=== PATIENT | male | born 1950 | race Caucasian/White ===

== ENCOUNTER → 2017-01-12 | Outpatient (CLI) | payer OTHER ==
[~2017-01-12] MED LIST: GADOBUTROL 10 ML VIAL IVP ONE
== END ==
LOC: FIMAGING 14:54
PROVIDERS: ATTEND Internal Medicine Hematology & Oncology
DX: C71.9 Malignant neoplasm of brain, unspecified (principal)
CPT/HCPCS: A9585

== ENCOUNTER 2017-06-06 15:30 | Inpatient (IN) | payer OTHER ==
[2017-06-06] MEDS ORDERED: NS 1,000 ML IV ONE (15:54)
--- NOTE | 2017-06-06 15:54 | EDPHY ---
H & P Stated Complaint: rlq abd pain since yesterday Time Seen by Provider: 06/06/17 15:53 HPI/ROS: CHIEF COMPLAINT: Right lower quadrant pain, low-grade fever HISTORY OF PRESENT ILLNESS: The patient has a history of a [employer] GBM. He is currently receiving treatment with chemotherapy. He was referred to the ED by his primary care provider for evaluation of a 1 day history of right lower quadrant pain and low-grade fever. The patient denies prior history of the symptoms. He states his symptoms are mild in nature. They are worsened with palpation and movement. The patient denies prior history of appendectomy. The patient denies dysuria or flank pain. REVIEW OF SYSTEMS: A comprehensive 10 point review of systems is otherwise negative aside from elements mentioned in the history of present illness. Source: Patient Exam Limitations: No limitations - Personal History Current Tetanus/Diphtheria Vaccine: Yes - Medical/Surgical History Hx Asthma: No Hx Chronic Respiratory Disease: No Hx Diabetes: No Hx Cardiac Disease: No Hx Renal Disease: No Hx Cirrhosis: No Hx Alcoholism: No Hx HIV/AIDS: No Hx Splenectomy or Spleen Trauma: No Other PMH: HTN, anxiety, neuropathy glioblastoma - Social History Smoking Status: Never smoked - Physical Exam Exam: General Appearance: Alert, no acute distress Eyes: Pupils equal and round no pallor or injection ENT, Mouth: Mucous membranes moist Respiratory: There are no retractions, lungs are clear to auscultation Cardiovascular: Regular rate and rhythm Gastrointestinal: Mild tenderness to palpation right lower quadrant Neurological: Mild expressive aphasia presumably secondary to his [employer] tumor Skin: Warm and dry, no rashes Musculoskeletal: Neck is supple nontender Extremities: symmetrical, full range of motion Constitutional: Initial Vital Signs Temperature (C) 36.9 C 06/06/17 15:35 Heart Rate 116 H 06/06/17 15:35 Respiratory Rate 20 06/06/17 15:35 Blood Pressure 122/90 H 06/06/17 15:35 O2 Sat (%) 97 06/06/17 15:35 O2 Delivery Mode Room Air Allergies/Adverse Reactions: No Known Allergies Allergy (Verified 06/06/17 15:32) Home Medications: Medication Instructions Recorded ALPRAZolam [Xanax 0.25 MG (*)] 0.5 mg PO Q6H PRN #60 tab 07/28/16 Gabapentin [Neurontin 300 MG (*)] 300 mg PO TID #90 cap 07/28/16 Propranolol HCl [Inderal 10mg (*)] 10 mg PO TID #90 tab 07/28/16 busPIRone [Buspar (*)] 10 mg PO TID #90 tab 07/28/16 levETIRAcetam [Keppra 250 mg (*)] 750 mg PO BID #180 tab 07/28/16 oxyCODONE/APAP 5/325 [Percocet 1 - 2 tab PO Q4HRS PRN #60 tab 07/28/16 5/325 (*)] traZODone [traZODONE 50MG (*)] 50 mg PO HS #30 tab 07/28/16 Sulfamethox/Tmp 06/06/17 Temozolomide 06/06/17 Medical Decision Making ED Course/Re-evaluation: The patient presents to the ED for evaluation a 1 day history of abdominal pain. The patient characterized this pain is being quite mild. He did have associated fevers. The patient does have a history of GBM and is currently receiving chemotherapy. The patient was seen by his primary care provider who referred him to the ED. The patient was noted to have fairly tense abdominal musculature and was a bit difficult to examine. He did have tenderness to deep palpation in his right mid quadrant. A CT scan of the abdomen pelvis was obtained which demonstrates acute appendicitis. Consultation was made with Dr. Martinez, our on-call surgeon, at 5:20 p.m.. The patient did receive 1 g of IV Invanz. The patient will be admitted to the hospital for operative management of his acute appendicitis. Differential Diagnosis: Differential diagnosis considered includes appendicitis, perforation, obstruction, diverticulitis, nephrolithiasis - Data Points Laboratory Results: Laboratory Results 06/06/17 16:14 06/06/17 16:14 06/06/17 06/06/17 06/06/17 16:14 16:14 15:57 WBC 9.38 10^3/uL 10^3/uL (3.80-9.50) RBC 4.13 10^6/uL L 10^6/uL (4.40-6.38) Hgb 14.4 g/dL g/dL (13.7-17.5) Hct 39.2 % L % (40.0-51.0) MCV 94.9 fL fL (81.5-99.8) MCH 34.9 pg H pg (27.9-34.1) MCHC 36.7 g/dL g/dL (32.4-36.7) RDW 12.3 % % (11.5-15.2) Plt Count 131 10^3/uL L 10^3/uL (150-400) MPV 9.4 fL fL (8.7-11.7) Neut % (Auto) 80.2 % H % (39.3-74.2) Lymph % (Auto) 6.3 % L % (15.0-45.0) [place] % (Auto) 12.8 % % (4.5-13.0) Eos % (Auto) 0.0 % L % (0.6-7.6) Baso % (Auto) 0.2 % L % (0.3-1.7) Nucleat RBC Rel Count 0.0 % % (0.0-0.2) Absolute Neuts (auto) 7.52 10^3/uL H 10^3/uL (1.70-6.50) Absolute Lymphs (auto) 0.59 10^3/uL L 10^3/uL (1.00-3.00) Absolute Monos (auto) 1.20 10^3/uL H 10^3/uL (0.30-0.80) Absolute Eos (auto) 0.00 10^3/uL L 10^3/uL (0.03-0.40) Absolute Basos (auto) 0.02 10^3/uL 10^3/uL (0.02-0.10) Absolute Nucleated RBC 0.00 10^3/uL 10^3/uL (0-0.01) Immature Gran % 0.5 % % (0.0-1.1) Immature Gran # 0.05 10^3/uL 10^3/uL (0.00-0.10) Sodium 141 mEq/L mEq/L (135-145) Potassium 4.1 mEq/L mEq/L (3.5-5.2) Chloride 108 mEq/L mEq/L (97-110) Carbon Dioxide 16 mEq/l L mEq/l (22-31) Anion Gap 17 mEq/L H mEq/L (8-16) BUN 14 mg/dL mg/dL (7-23) Creatinine 0.9 mg/dL mg/dL (0.7-1.3) Estimated GFR > 60 Glucose 113 mg/dL H mg/dL (70-100) Calcium 9.7 mg/dL mg/dL (8.5-10.4) Urine Color KIRAN Urine Appearance HAZY Urine pH 5.0 (5.0-7.5) Ur Specific [place] 1.029 (1.002-1.030) Urine Protein 2+ H (NEGATIVE) Urine Ketones 1+ H (NEGATIVE) Urine Blood 1+ H (NEGATIVE) Urine Nitrate NEGATIVE (NEGATIVE) Urine Bilirubin NEGATIVE (NEGATIVE) Urine Urobilinogen NEGATIVE EU EU (0.2-1.0) Ur Leukocyte Esterase NEGATIVE (NEGATIVE) Urine RBC 3-5 /hpf H /hpf (0-3) Urine WBC 1-3 /hpf /hpf (0-3) Ur Epithelial Cells NONE SEEN /lpf /lpf (NONE-1+) Urine Mucus 4+ /lpf H /lpf (NONE-1+) Urine Glucose NEGATIVE (NEGATIVE) Medications Given: Discontinued Medications Sodium Chloride (Ns) 1,000 mls @ 0 mls/hr IV EDNOW ONE; Wide Open PRN Reason: Protocol Stop: 06/06/17 15:55 Last Admin: 06/06/17 16:14 Dose: 1,000 mls Departure - Departure Disposition: [facility] Inpatient Acute Clinical Impression: Acute appendicitis Qualifiers: Acute appendicitis type: with localized peritonitis Qualified Code(s): K35.3 - Acute appendicitis with localized peritonitis Condition: Good Referrals: Navin Lao MD [Primary Care Provider] - As per Instructions
[2017-06-06 16:27] LABS: PLATELET COUNT 131 10^3/uL (150-400)
[2017-06-06] MEDS ORDERED: IOPAMIDOL (ISOVUE-300) 100 ML BTL ONE (16:56)
[2017-06-06] MEDS ORDERED: ERTAPENEM 1 GM VIAL IVP ONE (17:16)
[2017-06-06] MEDS ORDERED: ceFAZolin 1 GM VIAL ONE (18:24)
[2017-06-06] MEDS ORDERED: HEPARIN 1000 UNIT/1 ML MDV ONE (18:24)
[2017-06-06] MEDS ORDERED: BUPIVACAINE 0.5% 10 ML SDV ONE ×2 (18:24→18:25)
--- NOTE | 2017-06-06 18:34 | PDANEPAE ---
ANE History of Present Illness lap appy ANE Past Medical History - Cardiovascular History Hx Hypertension: Yes Hx Arrhythmias: No Hx Chest Pain: No Hx Coronary Artery / Peripheral Vascular Disease: No Hx CHF / Valvular Disease: No Hx Palpitations: No - Pulmonary History Hx COPD: No Hx Asthma/Reactive Airway Disease: No Hx Recent Upper Respiratory Infection: No Hx Oxygen in Use at Home: No Hx Sleep Apnea: No Pulmonary History Comment: guille triggers no dx - Neurologic History Hx Cerebrovascular Accident: No Hx Seizures: Yes Hx Dementia: No Neurologic History Comment: seizure 07/02/16 AMS. brain tumor on left. right sided weakness - Endocrine History Hx Diabetes: No Hypothyroid: No Hyperthyroid: No Obesity: no - Renal History Hx Renal Disorders: No - Liver History Hx Hepatic Disorders: No - Neurological & Psychiatric Hx Hx Neurological and Psychiatric Disorders: Yes Neurological / Psychiatric History Comment: anxiety. 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 hard of hearing- no aides - Chronic Pain History Chronic Pain: Yes (headaches) - Surgical History Prior Surgeries: 07/05/16 left frontal crani aborted d/t pt pulling out pins during surgery ANE Review of Systems Review of systems is: negative Review of Systems: - Exercise capacity Exercise capacity: >=4 METS ANE Patient History - Allergies Allergies/Adverse Reactions: No Known Allergies Allergy (Verified 06/06/17 15:32) - Home Medications Home medications: home medication list seen and reviewed Home Medications: Acyclovir [Zovirax 400 mg (*)] 400 mg PO AD 06/06/17 [Last Taken Unknown] Prochlorperazine Maleate [Compazine 10mg (*)] 10 mg PO Q6H PRN 06/06/17 [Last Taken Unknown] Sulfamethox/Tmp 800/160 mg [Bactrim Ds] 1 tab PO AD 06/06/17 [Last Taken Unknown ] Temozolomide [Temodar] 140 mg PO AD 06/06/17 [Last Taken Unknown] traZODone [traZODONE 100MG (*)] 100 mg PO HS 06/06/17 [Last Taken 06/05/17] - NPO status NPO Since - Liquids (Date): 06/06/17 NPO Since - Liquids (Time): 09:00 NPO Since - Solids (Date): 06/05/17 - Anes Hx Anes Hx: no prior problems - Smoking Hx Smoking Status: Never smoked - Family Anes Hx Family Hx Anesthesia Complications: none ANE Labs/Vital Signs - Labs Result Diagrams: 06/06/17 16:14 06/06/17 16:14 - Vital Signs Blood Pressure: 132/83 Heart Rate: 96 Respiratory Rate: 16 O2 Sat (%): 96 Height: 187.96 cm Weight: 77.111 kg ANE Physical Exam - Airway Neck exam: FROM Mallampati Score: Class 1 Mouth exam: normal dental/mouth exam - Pulmonary Pulmonary: no respiratory distress - Cardiovascular Cardiovascular: regular rate and rhythym - ASA Status ASA Status: III ANE Anesthesia Plan Anesthesia Plan: general endotracheal anesthesia Specialized Airway: video laryngoscope
[2017-06-06] MEDS ORDERED: fentaNYL 250 MCG/5 ML INJ ONE (18:39)
[2017-06-06] MEDS ORDERED: PROPOFOL 200 MG/20 ML VIAL ONE ×2 (18:39)
[2017-06-06] MEDS ORDERED: LIDOCAINE 2% 5 ML SDV ONE (18:41)
[2017-06-06] MEDS ORDERED: ROCURONIUM 100 MG/10 ML VIAL ONE (18:42)
[2017-06-06] MEDS ORDERED: MIDAZOLAM 2 MG/2 ML VIAL ONE (18:44)
[2017-06-06] MEDS ORDERED: PHENYLEPHRINE HCL 100 MCG/ML SYR ONE (19:18)
[2017-06-06] MEDS ORDERED: ALBUTEROL 3 ML DEYVIAL IH PRN (19:31)
[2017-06-06] MEDS ORDERED: ONDANSETRON 4 MG/2 ML VIAL IVP PRN ×2 (19:31→21:09)
[2017-06-06] MEDS ORDERED: OXYCODONE/APAP 5/325 TAB PO PRN (19:31)
[2017-06-06] MEDS ORDERED: ACETAMINOPHEN 500 MG TAB PO PRN (19:31)
[2017-06-06] MEDS ORDERED: fentaNYL 100 MCG/2 ML INJ IVP PRN (19:31)
[2017-06-06] MEDS ORDERED: HYDROmorphONE/DILAUDID 2 MG/ML INJ IVP PRN ×2 (19:31→21:09)
[2017-06-06] MEDS ORDERED: DEXAMETHASONE 4 MG/ML VIAL IVP PRN (19:31)
[2017-06-06] MEDS ORDERED: LR 500 ML IV PRN (19:31)
[2017-06-06] MEDS ORDERED: NALOXONE HCL 0.4 MG/ML INJ IVP PRN (19:31)
--- NOTE | 2017-06-06 19:31 | POSTANESTH ---
Post Anesthetic Evaluation Cardiovascular Status: Normal, Stable Respiratory Status: Normal, Stable Level of Consciousness/Mental Status: Can Participate in Eval Pain Control: Adequate, Prn Tx Ordered Nausea/Vomiting Control: Adequate, Prn Tx Ordered Complications Possibly Related to Anesthesia: None Noted
[2017-06-06] MEDS ORDERED: KETOROLAC 30 MG/1 ML SDV ONE (20:04)
[2017-06-06] MEDS ORDERED: ONDANSETRON 4 MG/2 ML VIAL ONE (20:04)
[2017-06-06] MEDS ORDERED: DEXAMETHASONE 4 MG/ML VIAL ONE (20:04)
[2017-06-06] MEDS ORDERED: SUGAMMADEX SODIUM 200 MG/2 ML VIAL IVP ONE (20:04)
[2017-06-06] MEDS ORDERED: fentaNYL 100 MCG/2 ML INJ ONE (21:14)
--- NOTE | 2017-06-06 21:16 | PDGENHP ---
History & Physical Chief Complaint: Right lower quadrant pain History of Present Illness: 66-year-old male with right lower quadrant pain for [address] scan shows a significant appendicitis. He is afebrile. Present illness is complicated by the fact that he is undergoing chemotherapy for a glioblastoma of the brain. He is admitted at this time for laparoscopic appendectomy. Risks and options been fully discussed Pertinent Past, Social, Family History: Past medical history includes a glioblastoma. Medications include Keppra, gabapentin and others listed in his chart. Allergies none. Family history noncontributory. Review of systems negative on a 10 point review except for the HPI. Specifically does not smoke Relevant Physical Exam: General alert cooperative 66-year-old male with an obvious expressive a aphasia. Chest clear. Cor regular rhythm. Abdomen soft tender in the right lower quadrant with some guarding. Genitalia normal. HEENT nonicteric without adenopathy. Neuro expressive aphasia, moves all extremities but weaker on the right side. Psych oriented alert and cooperative Cardiorespiratory Assessment: Acute appendicitis. Plan lap appy. Risks and options been fully discussed
--- NOTE | 2017-06-06 21:19 | POSTOPPROG ---
Post Op Note Date of Operation: 06/06/17 Surgeon: Zain Martinez Anesthesiologist: Belkis Anesthesia: GET(General Endotracheal) Pre-op Diagnosis: Acute appendicitis Post-op Diagnosis: Perforated acute appendicitis Indication: Pain Procedure: Lap appy and drainage of perforated appendix Findings: Retrocecal retroperitoneal perforated appendix Inf/Abcess present in the surg proc area at time of surgery?: Yes Depth: Organ Space EBL: Minimal Complications: None Drains: Vernon Omer Specimen(s): Appendix
[2017-06-06] MEDS: D5W 1/2 NS W/ 20 KCl/L 1,000 ML IV SCH (22:03)
[2017-06-07] MEDS: KETOROLAC 15 MG/1 ML SDV IVP SCH ×5 (00:41→23:35)
[2017-06-07] MEDS: OXYCODONE/APAP 5/325 TAB PO PRN ×2 (06:26→10:34)
[2017-06-07] MEDS: D5W 1/2 NS W/ 20 KCl/L 1,000 ML IV SCH ×3 (06:26→23:35)
--- NOTE | 2017-06-07 08:23 | SOAPPROG ---
SOAP Progress Note Assessment/Plan: Assessment: looks good sp perfed appe/ wound ok/ afebrile/ tolerating clears abd soft with bs minimal juan drainage Plan:advance diet 06/07/17 08:22 Objective: Vital Signs Temp Pulse Resp BP Pulse Ox 36.6 C 72 18 97/59 L 97 06/07/17 07:54 06/07/17 07:54 06/07/17 07:54 06/07/17 07:54 06/07/17 07:54 06/06/17 06/07/17 06/08/17 05:59 05:59 05:59 Intake Total 2049 Output Total 320 Balance 1730 ICD10 Worksheet Patient Problems: Problems Problem Status Onset Acute appendicitis Acute Altered mental status Acute Brain tumor Acute Seizure Acute
[2017-06-07] MEDS: ERTAPENEM 1 GM VIAL IV SCH (08:39)
--- NOTE | 2017-06-07 10:10 | PDMN ---
Medical Necessity Medical necessity: Patient meets inpatient criteria per physician note and [facility] [place] [facility] -[facility] Appendectomy, with Abscess or Peritonitis, by Laparoscopy - 2 days postop - ( anticipated LOS > 2 midnights for ongoing IV antibiotics after perforated acute appendicitis.)
[2017-06-07] MEDS ORDERED: ALPRAZolam 0.25 MG TAB PO PRN (11:20)
[2017-06-07] MEDS ORDERED: PROCHLORPERAZINE MALEATE 10 MG TAB PO PRN (11:20)
[2017-06-07] MEDS ORDERED: ACYCLOVIR 400 MG TAB PO SCH (11:30)
[2017-06-07] MEDS ORDERED: SULFAMETHOX/TMP 800/160 MG 1 TAB PO SCH (11:30)
[2017-06-07] MEDS ORDERED: TEMOZOLOMIDE 140 MG PO SCH (11:30)
--- NOTE | 2017-06-07 12:25 | ASMTCMCOM ---
CM Note CM Note Notes: 06/07/2017 Case Management Note Reviewed chart. Pt admitted for appendectomy. There are no PT or OT evals at this time. There are no case management d/c needs identified d/t pt age, marital status and independence with ADL's. Case Management d/c poc: anticipating independent with follow up as directed. Case Management available if needs change. Date Signed: 06/07/2017 12:24 PM Electronically Signed By:Kayce Cabrera RN
[2017-06-07] MEDS ORDERED: levETIRAcetam 250 MG TAB PO SCH ×2 (12:27→21:00)
[2017-06-07] MEDS: levETIRAcetam 250 MG TAB PO SCH ×2 (13:33→21:19)
[2017-06-07] MEDS ORDERED: NS 1,000 ML IV ONE (14:47)
[2017-06-07] MEDS: GABAPENTIN 300 MG CAP PO SCH ×2 (17:09→21:19)
[2017-06-07] MEDS: PROPRANOLOL HCL 10 MG TAB PO SCH ×2 (17:09→21:18)
[2017-06-07] MEDS: busPIRone 10 MG TAB PO SCH ×2 (17:11→21:19)
[2017-06-07] MEDS ORDERED: CALCIUM CARBONATE 500 MG CHEWABLE TAB PO PRN (18:12)
[2017-06-07 20:11] VITALS: RESP 16
[2017-06-07] MEDS ORDERED: traZODone 100 MG TAB PO SCH (21:00)
[2017-06-08] MEDS: KETOROLAC 15 MG/1 ML SDV IVP SCH ×2 (05:33→11:41)
[2017-06-08] MEDS: OXYCODONE/APAP 5/325 TAB PO PRN (08:28)
[2017-06-08] MEDS: busPIRone 10 MG TAB PO SCH (08:29)
[2017-06-08] MEDS: levETIRAcetam 250 MG TAB PO SCH (08:29)
[2017-06-08] MEDS: PROPRANOLOL HCL 10 MG TAB PO SCH (08:30)
[2017-06-08] MEDS: GABAPENTIN 300 MG CAP PO SCH (08:32)
[2017-06-08 08:36] VITALS: BP 110/61
[2017-06-08 08:39] VITALS: PULSE 82; TEMP 97.9; O2SAT 92
[2017-06-08] MEDS: ERTAPENEM 1 GM VIAL IV SCH (09:34)
--- NOTE | 2017-06-08 09:56 | SOAPPROG ---
SOAP Progress Note Assessment/Plan: Assessment: 66 y/o male s/p appendectomy S: Doing well. Eager to go home. O: Afebrile Alert No WOB Abdomen soft, nontender, +BS Minimal CYNTHIA drainage Plan: Discharge today. Rx for Levaquin for 5 days. Follow up in office next week to get drain out. 06/08/17 09:54 Objective: Vital Signs Temp Pulse Resp BP Pulse Ox 36.6 C 82 16 110/61 92 06/08/17 08:37 06/08/17 08:37 06/08/17 08:37 06/08/17 08:37 06/08/17 08:37 06/07/17 06/08/17 06/09/17 05:59 05:59 05:59 Intake Total 2050 3450 Output Total 320 425 Balance 1730 3025 ICD10 Worksheet Patient Problems: Problems Problem Status Onset Acute appendicitis Acute Altered mental status Acute Brain tumor Acute Seizure Acute
--- NOTE | 2017-06-08 13:12 | GOP ---
[f rep st] OPERATIVE REPORT DATE OF OPERATION: 04/05/2017 SURGEON: Zain Martinez MD ELECTRO[employer] T[employer]NER AND FINISHER: There was no cancer genetics assistant. ANESTHESIOLOGIST: Anesthesia was Dr. Stephens. PREOPERATIVE DIAGNOSIS: Acute appendicitis. POSTOPERATIVE DIAGNOSIS: Perforated appendicitis. PROCEDURE PERFORMED: Laparoscopic appendectomy and drainage. FINDINGS: The patient was found to have a very inflamed retrocecal retroperitoneal appendix which wa s quite difficult to get out, had a small contained abscess associated with the appendix. DESCRIPTION OF PROCEDURE: Patient was taken to the operating room where he received a satisfactory g eneral endotracheal anesthesia. He was placed in the supine position, prepped and draped in the usua l sterile fashion. A periumbilical incision was made. A Veress needle was inserted. Pneumoperitone um was established. Trocar was introduced. Laparoscope introduced. Good visualization was obtained . Two other trocars were placed in the lower abdomen under direct vision. The cecum was rotated med ially. The appendix was visualized but there was a marked amount of inflammation and induration in t he area. The appendix was carefully mobilized using the Harmonic scalpel and elevated up out of the retroperitoneal position. The base of the appendix was identified. It was skeletonized and divided w ith the Endo-MAIDA stapler. The appendiceal mesentery was then carefully divided with the Harmonic sca lpel, it from the wall of the cecum very carefully. A small abscess pocket was entered an d suctioned clear. The appendix was freed up from its chronically inflamed retroperitoneal position. It basically came out in portions, one below and one above the abscessed area. After freeing the w hole thing, it was placed in a specimen bag and extracted through the upper midline port site. The w ound was copiously irrigated. Hemostasis was assured. There was no evidence of any retained appendi ceal tissue. A 15 round silicone CYNTHIA drain was brought through one of the lower trocar sites and plac ed in the pelvis and into the appendiceal abscess are. Trocars were removed under direct vision. Tr ocar sites were closed with 0 Vicryl for the fascia, 4-0 Monocryl subcuticular stitch for the skin. All layers were infiltrated with 0.5% Marcaine. Blood loss was negligible. There were no complicatio ns. He was taken to the recovery room in good condition. /[id number]/MODL
== END 2017-06-08 12:09 | disposition home or self-care (01) | DRG 339 ==
LOC: F3E 21:51
PROVIDERS: ADMIT Surgery; ATTEND Surgery
PROC: 0W9G0ZZ Drainage of Peritoneal Cavity, Open Approach (ICD-10-PCS; principal; 2017-06-06 18:30)
PROC: 0DTJ4ZZ Resection of Appendix, Percutaneous Endoscopic Approach (ICD-10-PCS; principal; 2017-06-06 18:30)
DX: K35.3 Acute appendicitis with localized peritonitis (principal); C71.1 Malignant neoplasm of frontal lobe; R47.01 Aphasia; G81.91 Hemiplegia, unspecified affecting right dominant side; I10 Essential (primary) hypertension; F41.9 Anxiety disorder, unspecified
CPT/HCPCS: 96374; J0690; J1100; J1335; J1885; J2250; J2370; J2405; J2704; J3010; Q9967

== ENCOUNTER 2017-07-09 12:06 | Emergency (ER) | payer OTHER ==
[2017-07-09 12:12] VITALS: BP 101/71; PULSE 85; RESP 20; TEMP 97.3; O2SAT 97
[2017-07-09 12:44] LABS: PLATELET COUNT 79 10^3/uL (150-400)
--- NOTE | 2017-07-09 12:48 | EDPHY ---
H & P Time Seen by Provider: 07/09/17 12:20 HPI/ROS: CHIEF COMPLAINT: Seizure HISTORY OF PRESENT ILLNESS: 66-year-old male presents to the emergency department by private vehicle with his after he had a witnessed seizure. Patient has a known history of a glioblastoma which was resected 1 year ago. He underwent chemo and radiation and continues monthly chemo. He is followed by Dr. Park. He is due for his next cycle of chemo starting tomorrow. He has not had a seizure nearly 1 year. He has been taking Keppra 750 mg daily. He recently went on a trip and states that he was very tired. He slept for 14 hr yesterday was feeling fine and then had a witnessed seizure just 2 hr prior to arrival. The patient fell and hit the left side of his face on a rug that was overlying hardwood floor. He was confused after the incident consistent with being postictal. He did not bite his tongue. He was not incontinent of urine. He denies a headache. Denies visual symptoms. Denies neck pain. REVIEW OF SYSTEMS: Constitutional: No fever, no chills. Eyes: No double or blurry vision. ENT: No sore throat. Respiratory: No cough, no shortness of breath. Cardiac: No chest pain. Gastrointestinal: No abdominal pain, vomiting or diarrhea. Genitourinary: No dysuria. Musculoskeletal: No neck or back pain. Skin: No rashes. Neurological: No headache. Past Medical/Surgical History: Glioblastoma resected July of 2016, still undergoing chemotherapy, appendectomy June 2017, hypertension, anxiety, neuropathy Social History: Smoking Status: Never smoked Physical Exam: General Appearance: Alert, no distress. Patient is having difficulty speaking which is chronic. at bedside. Eyes: Pupils equal and round. Extraocular motions are all intact. ENT: Mouth: Mucous membranes moist. No tongue laceration or abrasion. Respiratory: No wheezing, rhonchi, or rales, lungs are clear to auscultation. Cardiovascular: Regular rate and rhythm. Gastrointestinal: Abdomen is soft and nontender, no masses, no rebound or guarding, bowel sounds normal. Neurological: Alert and oriented x 3, cranial nerves II through XII grossly intact Skin: Superficial abrasions noted to the left zygomatic arch and left cheek area. Superficial abrasion to the anterior helix of the left ear. Warm and dry , no rashes. Musculoskeletal: Nontender to palpate along the cervical, thoracic or lumbar spine. Neck is supple. Extremities: Full range of motion and no peripheral edema. Psychiatric: Patient is oriented X 3, there is no agitation. Constitutional: Initial Vital Signs Temperature (C) 36.3 C 07/09/17 12:10 Heart Rate 85 07/09/17 12:10 Respiratory Rate 20 07/09/17 12:10 Blood Pressure 101/71 07/09/17 12:10 O2 Sat (%) 97 07/09/17 12:10 O2 Delivery Mode Room Air Allergies/Adverse Reactions: No Known Allergies Allergy (Verified 07/09/17 12:09) Home Medications: Medication Instructions Recorded ALPRAZolam [Xanax 0.25 MG (*)] 0.5 mg PO Q6H PRN #60 tab 07/28/16 Gabapentin [Neurontin 300 MG (*)] 300 mg PO TID #90 cap 07/28/16 Propranolol HCl [Inderal 10mg (*)] 10 mg PO TID #90 tab 07/28/16 busPIRone [Buspar (*)] 10 mg PO TID #90 tab 07/28/16 levETIRAcetam [Keppra 250 mg (*)] 750 mg PO BID #180 tab 07/28/16 Acyclovir [Zovirax 400 mg (*)] 400 mg PO AD 06/06/17 Prochlorperazine Maleate 10 mg PO Q6H PRN 06/06/17 [Compazine 10mg (*)] Sulfamethox/Tmp 800/160 mg 1 tab PO AD 06/06/17 [Bactrim DS] Temozolomide [Temodar] 140 mg PO AD 06/06/17 traZODone [traZODONE 100MG (*)] 100 mg PO HS 06/06/17 Dexamethasone [Decadron] 8 mg PO BID #20 tab 07/09/17 Medical Decision Making - Diagnostics Imaging Results: Imaging Impressions Brain MRI 07/09/17 13:35 Impression: Increasing peripheral nodular enhancement in the operative bed left frontal lobe extending into the parietal lobe indicating progression of patient' s known glioblastoma. Increasing surrounding vasogenic edema. Results called and discussed with Marjan Hendrickson PA-C, on 07/09/2017, 15:25. Imaging: Discussed imaging studies w/ call center trainer Radiologist ED Course/Re-evaluation: 66-year-old male presents to the emergency department with history of glioblastoma presents to the emergency department after having seizure. He has and seizure in nearly 1 year. Hemoglobin 12.7, hematocrit 35.2%. Platelets 79,000. The case was discussed with Dr. Julio C Miller, secondary supervising physician, who did not directly evaluate the patient but agrees with treatment and plan. He recommended obtaining MRI both without and with contrast which revealed nodular enhancement of his glioblastoma measuring 5.7 x 2.0 x 2.2 cm. I spoke with Dr. Torres, on-call oncologist, who recommended starting the patient on Decadron 8 mg twice daily. He will continue his Keppra. He will hold off on taking his chemotherapy tomorrow and will follow up in their office this week. The patient and the were comfortable with this. They would like to go home. They do not want to be admitted to the hospital. I recommended returning to the emergency department immediately if he developed recurring seizure activity, if he developed worsening headache, altered mental status, or any other concerns. They both verbalized understanding and agreed. Differential Diagnosis: Seizure including but not limited to electrolyte abnormality, alcohol withdrawal , medication noncompliance, head injury, and breakthrough seizure. - Data Points Laboratory Results: Laboratory Results 07/09/17 12:40 07/09/17 12:40 07/09/17 07/09/17 12:40 12:40 WBC 2.47 10^3/uL L 10^3/uL (3.80-9.50) RBC 3.76 10^6/uL L 10^6/uL (4.40-6.38) Hgb 12.7 g/dL L g/dL (13.7-17.5) Hct 35.2 % L % (40.0-51.0) MCV 93.6 fL fL (81.5-99.8) MCH 33.8 pg pg (27.9-34.1) MCHC 36.1 g/dL g/dL (32.4-36.7) RDW 12.5 % % (11.5-15.2) Plt Count 79 10^3/uL L 10^3/uL (150-400) MPV 9.4 fL fL (8.7-11.7) Neut % (Auto) 61.9 % % (39.3-74.2) Lymph % (Auto) 21.5 % % (15.0-45.0) [place] % (Auto) 15.4 % H % (4.5-13.0) Eos % (Auto) 0.4 % L % (0.6-7.6) Baso % (Auto) 0.4 % % (0.3-1.7) Nucleat RBC Rel Count 0.0 % % (0.0-0.2) Absolute Neuts (auto) 1.53 10^3/uL L 10^3/uL (1.70-6.50) Absolute Lymphs (auto) 0.53 10^3/uL L 10^3/uL (1.00-3.00) Absolute Monos (auto) 0.38 10^3/uL 10^3/uL (0.30-0.80) Absolute Eos (auto) 0.01 10^3/uL L 10^3/uL (0.03-0.40) Absolute Basos (auto) 0.01 10^3/uL L 10^3/uL (0.02-0.10) Absolute Nucleated RBC 0.00 10^3/uL 10^3/uL (0-0.01) Immature Gran % 0.4 % % (0.0-1.1) Immature Gran # 0.01 10^3/uL 10^3/uL (0.00-0.10) Sodium 140 mEq/L mEq/L (135-145) Potassium 3.8 mEq/L mEq/L (3.5-5.2) Chloride 105 mEq/L mEq/L (97-110) Carbon Dioxide 27 mEq/l mEq/l (22-31) Anion Gap 8 mEq/L mEq/L (8-16) BUN 17 mg/dL mg/dL (7-23) Creatinine 0.9 mg/dL mg/dL (0.7-1.3) Estimated GFR > 60 Glucose 92 mg/dL mg/dL (70-100) Calcium 8.6 mg/dL mg/dL (8.5-10.4) Departure - Departure Disposition: Home, Routine, Self-Care Clinical Impression: Glioblastoma, Seizure Condition: Good Instructions: Nonepileptic Seizures (ED), Glioblastoma (DC) Additional Instructions: Follow up with your oncologist this week. Continue your Keppra as prescribed. Dexamethasone 8 mg twice daily. Hold off on taking her oral chemotherapy tomorrow until you are seen by your oncologist this week. Referrals: Navin Lao MD [Primary Care Provider] - As per Instructions Prescriptions: Dexamethasone [Decadron] 8 mg PO BID #20 tab
[2017-07-09] MEDS ORDERED: GADOBUTROL 10 ML VIAL IVP ONE (14:16)
[2017-07-09] MEDS ORDERED: DEXAMETHASONE 4 MG TAB PO ONE (15:53)
== END 2017-07-09 16:24 | disposition home or self-care (01) ==
DX: R56.9 Unspecified convulsions (principal); C71.9 Malignant neoplasm of brain, unspecified; I10 Essential (primary) hypertension
CPT/HCPCS: A9585

== ENCOUNTER → 2017-09-28 | Outpatient (CLI) | payer OTHER | LOC: FIMAGING 06:45 | PROVIDERS: ATTEND Nurse Practitioner | DX: C71.9 Malignant neoplasm of brain, unspecified (principal); J32.3 Chronic sphenoidal sinusitis | CPT/HCPCS: A9585 ==